=== PATIENT | female | born 1980 | race Hispanic/Latino ===

== ENCOUNTER 2018-01-20 19:55 | Emergency (ER) | payer SELFPAY ==
--- NOTE | 2018-01-20 21:49 | ED PDOC ---
Arrival/HPI - General Chief Complaint: Weakness/Neurological Deficit Time Seen by Provider: 01/20/18 21:00 Historian: Patient - History of Present Illness Narrative History of Present Illness (Text): 01/20/18 21:10 37 year old female, whose past medical history includes alcohol abuse, presents complaining of tingling sensation from her abdomen all the way down both her legs that began 2 days ago. Patient states her skin feels like if you put ice on it for a long time and then remove it. She is able to walk without any difficulty. Patient denies any injuries, fever, chills, chest pain, shortness of breath, nausea, vomiting, diarrhea, urinary symptoms, back pain, neck pain, headache, dizziness, or any other complaints. Time/Duration: Other (2 days ) Symptom Onset: Sudden Symptom Course: Unchanged Activities at Onset: Light Context: Home Past Medical History - Provider Review Nursing Documentation Reviewed: Yes - Psychiatric Hx Substance Use: No Family/Social History - Physician Review Nursing Documentation Reviewed: Yes Family/Social History: No Known Family HX Smoking Status: Never Smoked Hx Alcohol Use: Yes Frequency of alcohol use: Daily Hx Substance Use: No Allergies/Home Meds Allergies/Adverse Reactions: Allergies No Known Allergies Allergy (Verified 01/20/18 20:17) Home Medications: Home Meds Medication Instructions Recorded Confirmed No Known Home Med 01/20/18 01/20/18 Review of Systems - Physician Review All systems were reviewed & negative as marked: Yes - Review of Systems Constitutional: absent: Fevers, Other (Chills) Respiratory: absent: SOB Cardiovascular: absent: Chest Pain Gastrointestinal: absent: Diarrhea, Nausea, Vomiting Genitourinary Female: absent: Dysuria, Frequency, Hematuria Musculoskeletal: absent: Back Pain, Neck Pain Neurological: Other (tingling sensation from abdomen all the way down to both her legs. ). absent: Headache, Dizziness Physical Exam Vital Signs Reviewed: Yes Vital Signs Temp Pulse Resp BP Pulse Ox 01/20/18 23:54 85 18 128/62 100 01/20/18 22:25 98 F 85 19 124/53 L 99 01/20/18 20:12 98.5 F Temperature: Afebrile Appearance: Positive for: Well-Appearing, Non-Toxic, Comfortable Pain Distress: None Mental Status: Positive for: Alert and Oriented X 3 - Systems Exam Head: Present: Atraumatic, Normocephalic Pupils: Present: PERRL Extroacular Muscles: Present: EOMI Conjunctiva: Present: Normal Mouth: Present: Moist Mucous Membranes Neck: Present: Normal Range of Motion Respiratory/Chest: Present: Clear to Auscultation, Good Air Exchange. No: Respiratory Distress, Accessory Muscle Use Cardiovascular: Present: Regular Rate and Rhythm, Normal S1, S2. No: Murmurs Abdomen: No: Tenderness, Distention, Peritoneal Signs Back: Present: Normal Inspection (with no tenderness) Upper Extremity: Present: Normal Inspection, Other (5/5 strength ). No: Cyanosis, Edema Lower Extremity: Present: Normal Inspection, NORMAL PULSES (DP pulses goof ), Other (5/5 strength ). No: Edema Neurological: Present: GCS=15, CN II-XII Intact, Speech Normal, Other (Very mild decrease sensation to entire abdomen and legs. ) Skin: Present: Warm, Dry, Normal Color. No: Rashes Psychiatric: Present: Alert, Oriented x 3, Normal Insight, Normal Concentration Medical Decision Making ED Course and Treatment: 01/20/18 21:5202 Impression: 37 year old female presents complaining of tingling sensation to her abdomen all the way down both her legs that began 2 days ago. Patient is a chronic alcoholic. Plan: -- Labs -- Reassess and disposition Progress Notes: Labs done and were unremarkable. Patient with intact sensation and no muscle weakness. Advised her to follow up with PMD. Also referred to neurology. Advised abstaining from EtOH as she may be experiencing neuropathy secondary to chronic alcohol use. - Lab Interpretations Lab Results: 01/20/18 22:15 01/20/18 22:15 Lab Results 01/20/18 22:15: Sodium 142, Potassium 3.7, Chloride 99, Carbon Dioxide 26, Anion Gap 21 H, BUN 2 L, Creatinine 0.5 L, Est GFR ( Amer) > 60, Est GFR (Non-Af Amer) > 60, Random Glucose 99, Calcium 9.6 01/20/18 22:15: WBC 13.0 H, RBC 3.88, Hgb 12.1, Hct 36.6, MCV 94.3, MCH 31.2, MCHC 33.1, RDW 18.2 H, Plt Count 265, MPV 8.7, Gran % 76.7 H, Lymph % (Auto) 16.3 L, Cache % (Auto) 4.7, Eos % (Auto) 2.0, Baso % (Auto) 0.3, Gran # 9.97 H, Lymph # (Auto) 2.1, Cache # (Auto) 0.6, Eos # (Auto) 0.3, Baso # (Auto) 0.04 I have reviewed the lab results: Yes - Scribe Statement The provider has reviewed the documentation as recorded by the Alexsandraibe Marilu Jules Provider Scribe Attestation: All medical record entries made by the Scribe were at my direction and personally dictated by me. I have reviewed the chart and agree that the record accurately reflects my personal performance of the history, physical exam, medical decision making, and the department course for this patient. I have also personally directed, reviewed, and agree with the discharge instructions and disposition. Disposition/Present on Arrival - Present on Arrival Any Indicators Present on Arrival: No History of DVT/PE: No History of Uncontrolled Diabetes: No Urinary Catheter: No History of Decub. Ulcer: No History Surgical Site Infection Following: None - Disposition Have Diagnosis and Disposition been Completed?: Yes Diagnosis: Bilateral leg paresthesia Disposition: HOME/ ROUTINE Disposition Time: 23:54 Condition: GOOD Discharge Instructions (ExitCare): Paresthesias (DC) Additional Instructions: LI BEAN, thank you for letting us take care of you today. Your provider was Lesa Avitia MD and you were treated for NUMBNESS IN LEGS, UPPER BODY. The emergency medical care you received today was directed at your acute symptoms. If you were prescribed any medication, please fill it and take as directed. It may take several days for your symptoms to resolve. Return to the Emergency Department if your symptoms worsen, do not improve, or if you have any other problems. Please contact your doctor or call one of the physicians/clinics you have been referred to that are listed on the Patient Visit Information form that is included in your discharge packet. Bring any paperwork you were given at discharge with you along with any medications you are taking to your follow up visit. Our treatment cannot replace ongoing medical care by a primary care provider outside of the emergency department. Thank you for allowing the [facility] team to be part of your care today. If you had an X-Ray or CT scan: A Radiologist will review the ED reading if any change in treatment is needed we will contact you. If you had a blood, urine, or wound culture: It will take several days for the results, if any change in treatment is needed we will contact you. If you had an STI test: It will take 48 hours for the results. Please call after 1 week if you have not heard back. Please follow up with your primary care physician. You have also been referred to neurology, please see them if needed. Referrals: Alexx Sharpe MD [Staff Provider] - Follow up with primary Forms: [employer] (Bermudian)
[2018-01-20 22:21] LABS: BASO # 0.04 K/mm3 (0.0-2.0); BASO % 0.3 % (0.0-3.0); EOS # 0.3 (0.0-0.7); GRAN # 9.97 (1.4-6.5); GRAN % 76.7 % (50.0-68.0); HEMOGLOBIN 12.1 g/dL (12.0-16.0); LYMPH # 2.1 (1.2-3.4); LYMPH % 16.3 % (22.0-35.0); MEAN CELL VOLUME 94.3 fl (80.0-105.0); MEAN CORPUSCULAR HEMOGLOBIN 31.2 pg (25.0-35.0); MEAN CORPUSCULAR HGB CONC 33.1 g/dl (31.0-37.0); MEAN PLATELET VOLUME 8.7 fl (7.0-11.0); MONO # 0.6 (0.1-0.6); MONO % 4.7 % (1.0-6.0); RBC 3.88 10^6/uL (3.5-6.1); RED CELL DISTRIBUTION WIDTH 18.2 % (11.5-14.5)
[2018-01-20 22:29] VITALS: PULSE 85; TEMP 98
[2018-01-20 22:32] LABS: BLOOD UREA NITROGEN 2 mg/dL (7-21); CALCIUM 9.6 mg/dL (8.4-10.5); GFR NON-AFRICAN AMERICAN > 60
[2018-01-20 23:56] VITALS: BP 128/62; RESP 18; O2SAT 100
== END 2018-01-20 23:54 | disposition home or self-care (01) ==
LOC: ED 19:55
DX: R20.2 Paresthesia of skin (principal)

== ENCOUNTER 2018-09-23 23:29 | Emergency (ER) | payer BC, MEDICAID ==
[2018-09-23 23:49] VITALS: TEMP 98.4
--- NOTE | 2018-09-24 00:22 | ED PDOC ---
Arrival/HPI <Brad Carreno - Last Filed: 09/24/18 01:24> - General Historian: Patient - History of Present Illness Narrative History of Present Illness (Text): 09/24/18 00:23 37 year old female, with a past medical history of alcohol abuse, who presents to the emergency complaining of gradual onset of intermittent pain under her L breast, last for a few minutes, which radiates to the L upper chest, legs and back, with associated nausea and vomiting, onset this afternoon. She denies any trauma or injury. She also denies any shortness of breath, difficulty breathing, palpitations, back pain, headache, diziness, abdominal pain, diarrhea, fever, or any other somatic complaints. PMD: Dr. Longoria Time/Duration: 24 hours Symptom Onset: Gradual Symptom Course: Unchanged Activities at Onset: Light Context: Home <Marta Hines PA-C - Last Filed: 09/24/18 01:53> - General Chief Complaint: Chest Pain Time Seen by Provider: 09/23/18 23:32 Past Medical History - Provider Review Nursing Documentation Reviewed: Yes - Infectious Disease Hx of Infectious Diseases: None - Psychiatric Hx Substance Use: No <Marta Hines PA-C - Last Filed: 09/24/18 01:53> Family/Social History - Physician Review Nursing Documentation Reviewed: Yes Family/Social History: Unknown Family HX Smoking Status: Never Smoked Hx Alcohol Use: Yes Hx Substance Use: No <Marta Hines PA-C - Last Filed: 09/24/18 01:53> Allergies/Home Meds <Brda Carreno - Last Filed: 09/24/18 01:24> <Marta Hines PA-C - Last Filed: 09/24/18 01:53> Allergies/Adverse Reactions: Allergies No Known Allergies Allergy (Verified 09/23/18 23:36) Home Medications: Home Meds Medication Instructions Recorded Confirmed amLODIPine [Norvasc] 10 mg PO DAILY 09/23/18 09/23/18 Review of Systems - Physician Review All systems were reviewed & negative as marked: Yes - Review of Systems Constitutional: absent: Fevers Respiratory: absent: SOB Cardiovascular: Chest Pain. absent: Palpitations Gastrointestinal: Nausea, Vomiting. absent: Diarrhea Musculoskeletal: Back Pain Neurological: absent: Headache <Marta Hines PA-C - Last Filed: 09/24/18 01:53> Physical Exam Vital Signs Temp Pulse Resp BP Pulse Ox 09/23/18 23:49 98.4 F 85 17 142/91 H 98 <WaiBrad marcus - Last Filed: 09/24/18 01:24> Vital Signs Reviewed: Yes Vital Signs Temp Pulse Resp BP Pulse Ox 09/23/18 23:49 98.4 F 85 17 142/91 H 98 Temperature: Afebrile Blood Pressure: Normal Pulse: Regular Respiratory Rate: Normal Appearance: Positive for: Well-Appearing, Non-Toxic, Comfortable, Other (+odor of alcohol ) Pain Distress: Mild Mental Status: Positive for: Alert and Oriented X 3 - Systems Exam Head: Present: Atraumatic, Normocephalic Pupils: Present: PERRL Extroacular Muscles: Present: EOMI Conjunctiva: Present: Normal Mouth: Present: Moist Mucous Membranes Neck: Present: Normal Range of Motion. No: Meningeal Signs, Lymphadenopathy Respiratory/Chest: Present: Clear to Auscultation, Good Air Exchange, Tender to Palpation (+mild TTP to the ribs under the L breast). No: Respiratory Distress, Accessory Muscle Use Cardiovascular: Present: Regular Rate and Rhythm, Normal S1, S2. No: Murmurs Abdomen: No: Tenderness, Distention, Peritoneal Signs, Rebound, Guarding Back: Present: Normal Inspection. No: CVA Tenderness, Midline Tenderness Upper Extremity: Present: Normal Inspection. No: Cyanosis, Edema Lower Extremity: Present: Normal Inspection. No: Edema Neurological: Present: GCS=15, CN II-XII Intact, Speech Normal, Motor Func Grossly Intact, Normal Sensory Function Skin: Present: Warm, Dry, Normal Color. No: Rashes Psychiatric: Present: Alert, Oriented x 3, Normal Insight, Normal Concentration <Marta Hines PA-C - Last Filed: 09/24/18 01:53> Medical Decision Making - Lab Interpretations Lab Results: PT 11.9 SECONDS (9.4-12.5) 09/23/18 23:57 INR 1.07 09/23/18 23:57 APTT 32.0 Seconds (26.9-38.3) 09/23/18 23:57 Troponin I < 0.01 ng/mL 09/23/18 23:57 Total Bilirubin 0.3 mg/dL (0.2-1.3) 09/23/18 23:57 AST 30 U/L (14-36) 09/23/18 23:57 ALT 11 U/L (7-56) 09/23/18 23:57 Alkaline Phosphatase 57 U/L (38-126) 09/23/18 23:57 Total Protein 7.8 g/dL (5.8-8.3) 09/23/18 23:57 Albumin 4.5 g/dL (3.0-4.8) 09/23/18 23:57 Globulin 3.4 gm/dL 09/23/18 23:57 Albumin/Globulin Ratio 1.3 (1.1-1.8) 09/23/18 23:57 Urine Color Yellow (YELLOW) 09/23/18 23:57 Urine Appearance Clear (CLEAR) 09/23/18 23:57 Urine pH 6.0 (4.7-8.0) 09/23/18 23:57 Ur Specific [place] 1.010 (1.005-1.035) 09/23/18 23:57 Urine Protein Negative mg/dL (<30 mg/dL) 09/23/18 23:57 Urine Glucose (UA) Negative mg/dL (NEGATIVE) 09/23/18 23:57 Urine Ketones Negative mg/dL (NEGATIVE) 09/23/18 23:57 Urine Blood Negative (NEGATIVE) 09/23/18 23:57 Urine Nitrate Negative (NEGATIVE) 09/23/18 23:57 Urine Bilirubin Negative (NEGATIVE) 09/23/18 23:57 Urine Urobilinogen 0.2 E.U./dL (<1 E.U./dL) 09/23/18 23:57 Ur Leukocyte Esterase Negative Daniele/uL (NEGATIVE) 09/23/18 23:57 - RAD Interpretation Radiology Orders: 09/23/18 23:55 CHEST PORTABLE [RAD] Stat - Medication Orders Current Medication Orders: Discontinued Medications Ondansetron HCl (Zofran Inj) 4 mg IVP STAT STA Stop: 09/23/18 23:57 <Brad Carreno - Last Filed: 09/24/18 01:24> ED Course and Treatment: 09/24/18 00:20 Impression: 37 year old female presents to the ED complaining of chest pain x earlier today. Differential Diagnosis included but are not limited to: Plan: -- EKG -- Labs -- Chest X-ray -- Zofran -- Iv fluids -- Urinalysis -- Urine culture -- Reassess and disposition Prior Visits: Notes and results from previous visits were reviewed. Progress Notes: 09/24/18 00:25 Patient reports she did not drink alcohol today. 09/24/18 01:42 CXR : NAD. EKG : NSR at 85 bpm, no acute ST changes. Labs reviewed : normal wbc, neg troponin, normal LFTs/lipase, normal UA, UDS (- ), +alcohol level of 282. 09/24/18 01:43 On reevaluation, patient remains awake alert and oriented 3 in no acute distress, reports feeling much improved. Patient still refusing recent alcohol ingestion. Diagnostic results d/w the patient. Pepcid IV ordered. Advised to follow up with primary care physician in 1-2 days without fail. Retur n to the emergency room at any time for any new or worsening symptoms. Patient states she fully agrees with and understands discharge instructions. States that she agrees with the plan and disposition. Verbalized and repeated discharge instructions and plan. I have given the patient opportunity to ask any additional questions. - RAD Interpretation Radiology Orders: 09/23/18 23:55 CHEST PORTABLE [RAD] Stat - Medication Orders Current Medication Orders: Discontinued Medications Ondansetron HCl (Zofran Inj) 4 mg IVP STAT STA Stop: 09/23/18 23:57 <Marta Hines PA-C - Last Filed: 09/24/18 01:53> - PA / SENIOR STORAGE ENGINEER / Resident Statement KISHAN has reviewed & agrees with the documentation as recorded. <Brad Carreno - Last Filed: 09/24/18 01:24> - CRISTIAN / SENIOR STORAGE ENGINEER / Resident Statement KISHAN has reviewed & agrees with the documentation as recorded. KISHAN has examined the patient and agrees with the treatment plan. - Scribe Statement The provider has reviewed the documentation as recorded by the Alexsandraibjustino Flanagan All medical record entries made by the Scribe were at my direction and personally dictated by me. I have reviewed the chart and agree that the record accurately reflects my personal performance of the history, physical exam, medical decision making, and the department course for this patient. I have also personally directed, reviewed, and agree with the discharge instructions and disposition. <Marta Hines PA-C - Last Filed: 09/24/18 01:53> Disposition/Present on Arrival <WaiBrad - Last Filed: 09/24/18 01:24> - Present on Arrival Any Indicators Present on Arrival: No History of DVT/PE: No History of Uncontrolled Diabetes: No Urinary Catheter: No History of Decub. Ulcer: No History Surgical Site Infection Following: None - Disposition Have Diagnosis and Disposition been Completed?: Yes Disposition Time: 01:45 Patient Plan: Discharge <Marta Hines PA-C - Last Filed: 09/24/18 01:53> - Disposition Diagnosis: Chest pain, Alcohol ingestion Disposition: HOME/ ROUTINE Patient Problems: Current Active Problems Problem Status Onset Chest pain Acute Alcohol ingestion Acute Condition: IMPROVED Discharge Instructions (ExitCare): Chest Pain (ED), Chest Pain That Is Not Caused by the Heart (DC) Additional Instructions: Thank you for letting us take care of you today. You were treated for chest pain. The emergency medical care you received today was directed at your acute symptoms. Return to the Emergency Department if your symptoms worsen, do not improve, or if you have any other problems. Please contact your doctor in 2 days for re-evaluation and follow up. Bring any paperwork you were given at discharge with you along with any medications you are taking to your follow up visit. Our treatment cannot replace ongoing medical care by a primary care provider (PCP) outside of the emergency department. Thank you for allowing the [facility] team to be part of your care today. Referrals: Dewey Longoria MD [Primary Care Provider] - Follow up with primary Forms: [employer] (N[place]ian), WORK NOTE
[2018-09-24 00:27] LABS: BASO # 0.05 K/mm3 (0.0-2.0); BASO % 0.8 % (0.0-3.0); EOS # 0.2 (0.0-0.7); EOS % 2.4 % (1.5-5.0); HEMOGLOBIN 12.5 g/dL (12.0-16.0); LYMPH # 3.8 (1.2-3.4); LYMPH % 60.9 % (22.0-35.0); MEAN CORPUSCULAR HEMOGLOBIN 25.9 pg (25.0-35.0); MEAN CORPUSCULAR HGB CONC 32.9 g/dl (31.0-37.0); MEAN PLATELET VOLUME 9.2 fl (7.0-11.0); MONO # 0.3 (0.1-0.6); MONO % 4.2 % (1.0-6.0); RBC 4.83 10^6/uL (3.5-6.1); RED CELL DISTRIBUTION WIDTH 14.7 % (11.5-14.5); WHITE BLOOD COUNT 6.2 10^3/uL (4.5-11.0)
[2018-09-24 00:28] LABS: URINE BILIRUBIN NEGATIVE (NEGATIVE); URINE BLOOD NEGATIVE (NEGATIVE); URINE GLUCOSE (UA) NEGATIVE (NEGATIVE); URINE LEUKOCYTE ESTERASE NEGATIVE Leu/uL (NEGATIVE); URINE PROTEIN NEGATIVE mg/dL (<30 mg/dL); URINE UROBILINOGEN 0.2 E.U./dL (<1 E.U./dL)
[2018-09-24 00:29] LABS: MEAN CELL VOLUME 78.7 fl (80.0-105.0); URINE APPEARANCE CLEAR (CLEAR); URINE COLOR YELLOW (YELLOW)
[2018-09-24 00:31] LABS: INR 1.07; PROTHROMBIN TIME 11.9 SECONDS (9.4-12.5)
[2018-09-24 01:00] LABS: ALB/GLOB RATIO 1.3 (1.1-1.8); ALBUMIN 4.5 g/dL (3.0-4.8); ALT/SGPT 11 U/L (7-56); AST/SGOT 30 U/L (14-36); BARBITURATES, UR NEGATIVE (NEGATIVE); BENZODIAZEPINES, UR NEGATIVE (NEGATIVE); BLOOD UREA NITROGEN 11 mg/dL (7-21); CALCIUM 8.4 mg/dL (8.4-10.5); GFR NON-AFRICAN AMERICAN > 60; OPIATES, UR NEGATIVE (NEGATIVE); PHENCYCLIDINE, UR NEGATIVE (NEGATIVE); TROPONIN I < 0.01 ng/mL
[2018-09-24 02:17] VITALS: BP 137/85; PULSE 84; RESP 14; O2SAT 99
--- NOTE | 2018-09-24 08:56 | CARD ---
APPROVED REPORT Date of service: 09/23/2018 EKG Measurement Heart [id number] <Conclusion> Normal sinus rhythm Normal ECG
--- NOTE | 2018-09-24 09:03 | RAD ---
Date of service: 09/24/2018 HISTORY: Unspecified chest pain. COMPARISON: No prior. FINDINGS: LUNGS: No active pulmonary disease. PLEURA: No significant pleural effusion identified, no pneumothorax apparent. CARDIOVASCULAR: No atherosclerotic calcification present Normal. OSSEOUS STRUCTURES: No significant abnormalities. VISUALIZED UPPER ABDOMEN: Normal. OTHER FINDINGS: None. IMPRESSION: No active disease.
== END 2018-09-24 02:17 | disposition home or self-care (01) ==
LOC: ED 23:29
DX: T51.0X1A Toxic effect of ethanol, accidental (unintentional), initial encounter (principal); R11.2 Nausea with vomiting, unspecified; R07.9 Chest pain, unspecified
CPT/HCPCS: 71045; 80053; 81003; 81025; 82550; 83615; 83690; 83735; 84484; 85025; 85610; 85730; 87086; 93005; 96374; 96375; 99281; G0480; J2405